=== PATIENT | female | born 1960 ===

== ENCOUNTER 2017-07-12 13:06 | Emergency (ER) | payer MEDICAID, OTHER ==
[2017-07-12 13:06] VITALS: BMI 34.7
[2017-07-12 13:17] VITALS: RESP 18; TEMP 98
--- NOTE | 2017-07-12 13:21 | ED PDOC ---
HPI: General Adult Time Seen by Provider: 07/12/17 13:18 Chief Complaint (Nursing): Cough, Cold, Congestion Chief Complaint (Provider): asthma History Per: Patient Additional Complaint(s): 56-year-old female with history of asthma presents with wheezing and congestion for 3 days. Patient ran out of her albuterol pump. Her primary doctors in [place] and she is here visiting family. Patient denies any chest pain or dyspnea on exertion but does have mild shortness of breath. PMD: in [place] Past Medical History Reviewed: Historical Data, Nursing Documentation, Vital Signs Vital Signs: Last Vital Signs Temp 98.0 F 07/12/17 13:16 Pulse 83 07/12/17 13:16 Resp 18 07/12/17 13:16 BP 129/83 07/12/17 13:16 Pulse Ox 99 07/12/17 14:27 - Medical History PMH: Asthma, HTN - Surgical History Other surgeries: left hand surgery - Family History Family History: States: No Known Family Hx - Living Arrangements Living Arrangements: With Family - Social History Current smoker - smoking cessation education provided: No Alcohol: None Drugs: Denies - Home Medications Home Medications: Ambulatory Orders Medication Instructions Recorded Albuterol HFA [Ventolin HFA 90 2 puff IH Q4 PRN #1 unit 06/11/17 mcg/actuation (8 g)] Albuterol/Ipratropium [Duoneb 3 3 ml IH Q4 PRN #30 neb 06/11/17 MG/3 Ml-0.5 MG/3 Ml 3 Ml] Azithromycin [Zithromax] 1 dose PO DAILY #1 pkt 06/11/17 Fluticasone/Salmeterol 250/50 1 puff IH DAILY 06/11/17 [Advair Diskus] Montelukast [Singulair] 10 mg PO 06/11/17 predniSONE [predniSONE Tab] 2 tab PO DAILY #10 tab 06/11/17 Albuterol HFA [Ventolin HFA 90 1 puff IH ASDIR #1 unit 07/12/17 mcg/actuation (8 g)] Prednisone 50 mg PO DAILY #5 tablet 07/12/17 - Allergies Allergies/Adverse Reactions: Allergies Allergy/AdvReac Type Severity Reaction Status Date / Time Penicillins AdvReac RASH Verified 06/11/17 12:57 Review of Systems ROS Statement: Except As Marked, All Systems Reviewed And Found Negative Constitutional: Negative for: Fever Cardiovascular: Negative for: Chest Pain Respiratory: Positive for: Cough, Shortness of Breath, Wheezing. Negative for: Hemoptysis, SOB with Exertion, Sputum Gastrointestinal: Negative for: Nausea, Vomiting Physical Exam - Reviewed Nursing Documentation Reviewed: Yes Vital Signs Reviewed: Yes - Physical Exam Appears: Positive for: Well, Non-toxic, No Acute Distress Skin: Negative for: Rash Eye Exam: Positive for: Normal appearance, EOMI, PERRL Neck: Positive for: Normal Cardiovascular/Chest: Positive for: Regular Rate, Rhythm Respiratory: Positive for: Wheezing. Negative for: Rhonchi, Respiratory Distress Gastrointestinal/Abdominal: Positive for: Soft. Negative for: Tenderness Extremity: Positive for: Normal ROM Neurologic/Psych: Positive for: Alert, Oriented - ECG O2 Sat by Pulse Oximetry: 99 Pulse Ox Interpretation: Normal - Other Rad CXR X-Ray: Interpreted by Me, Viewed By Me X-Ray Interpretation: no acute infiltrate Nebulizer Treatments/Peak Flow - Duonebs Number of Bronchodilator Doses given?: 3 (duoneb) - Pre/Post Peak Flow Pre Treatment Peak Flow: 250 Post treatment Peak Flow: 300 - Steroid Treatment Steroid: IV (IM solumedrol 125) - Clinical Response Clinical Response: Improved Medical Decision Making Medical Decision Making: Impression: Asthma exacerbation Plan: CXR Duoneb x 3 IM solumedrol 125 mg Patient feels better after meds were given. Rx ventolin inhaler and prednisone. Advised PMD follow up in 2-3 days. Disposition - Clinical Impression Clinical Impression: Asthma exacerbation - Patient ED Disposition Is Patient to be Admitted: No Counseled Patient/Family Regarding: Studies Performed, Diagnosis, Need For Followup, Rx Given - Disposition Referrals: [facility] [Outside] Disposition: Routine/Home Disposition Time: 14:37 Condition: STABLE Additional Instructions: Take rx meds as directed. Follow up with primary care doctor. Prescriptions: Albuterol HFA [Ventolin HFA 90 mcg/actuation (8 g)] 1 puff IH ASDIR #1 unit Prednisone 50 mg PO DAILY #5 tablet Instructions: Asthma, Adult (DC) Forms: [employer] (Indian)
[2017-07-12] MEDS ORDERED: Albuterol-Ipratrop 3 mg / 0.5 (3 ml) UD INH STA (13:33)
[2017-07-12] MEDS ORDERED: Albuterol-Ipratrop 3 mg / 0.5 (3 ml) UD ONE ×2 (13:37→13:42)
--- NOTE | 2017-07-12 14:28 | RAD ---
HISTORY: Cough COMPARISON: Comparison chest 01/12/2016 TECHNIQUE: Chest PA and lateral FINDINGS: LUNGS: Suspect minor left basilar atelectasis. Left. Scalloping both hemidiaphragms again noted. PLEURA: No significant pleural effusion identified. No pneumothorax apparent. CARDIOVASCULAR: Heart size is upper limits of normal/ borderline enlarged. Aorta appears ectatic and uncoiled. OSSEOUS STRUCTURES: Pectus carinatum again noted. Minor chronic anterior stature loss of 2 with 3 lower thoracic/upper lumbar segments with increase kyphosis. VISUALIZED UPPER ABDOMEN: Normal. OTHER FINDINGS: None. IMPRESSION: Suspect mild left basilar atelectasis. Scalloping both hemidiaphragms. No change pectus carinatum. Heart size upper limits of normal/borderline enlarged.
[2017-07-12 17:05] VITALS: BP 132/80; PULSE 88; O2SAT 98
== END 2017-07-12 15:40 | disposition home or self-care (01) ==
LOC: H.ER 13:06
DX: J45.901 Unspecified asthma with (acute) exacerbation (principal); I10 Essential (primary) hypertension; Z88.0 Allergy status to penicillin
CPT/HCPCS: 71046; 94640; 96372; 99282; J2930

== ENCOUNTER 2017-07-27 14:32 | Inpatient (IN) | payer MEDICAID ==
[2017-07-27 14:32] VITALS: BMI 34.7
[2017-07-27] MEDS ORDERED: Albuterol-Ipratrop 3 mg / 0.5 (3 ml) UD IH STA ×3 (15:09→17:02)
--- NOTE | 2017-07-27 15:12 | ED PDOC ---
HPI: SOB/CHF/COPD Time Seen by Provider: 07/27/17 15:00 Chief Complaint (Nursing): Shortness Of Breath History Per: Patient Onset/Duration Of Symptoms: Days (3) Current Symptoms Are (Timing): Still Present Current Respiratory Medications: See Home Med List Severity: Mild Associated Symptoms: denies: Fever Recently: Seen In ED Additional Complaint(s): SOB wheezing and cough productive white sputum Denies fever. Seen in ED 2 weeks ago for same. Also c/o sore throat. Past Medical History Vital Signs: Last Vital Signs Temp 98.3 F 07/27/17 14:56 Pulse 113 H 07/27/17 14:56 Resp 22 07/27/17 14:56 BP 155/83 H 07/27/17 14:56 Pulse Ox 98 07/27/17 18:09 - Medical History PMH: Asthma, HTN Denies: Chronic Kidney Disease - Family History Family History: States: Unknown Family Hx - Home Medications Home Medications: Ambulatory Orders Medication Instructions Recorded Albuterol HFA [Ventolin HFA 90 2 puff IH Q4 PRN #1 unit 06/11/17 mcg/actuation (8 g)] Albuterol/Ipratropium [Duoneb 3 3 ml IH Q4 PRN #30 neb 06/11/17 MG/3 Ml-0.5 MG/3 Ml 3 Ml] Azithromycin [Zithromax] 1 dose PO DAILY #1 pkt 06/11/17 Fluticasone/Salmeterol 250/50 1 puff IH DAILY 06/11/17 [Advair Diskus] Montelukast [Singulair] 10 mg PO 06/11/17 predniSONE [predniSONE Tab] 2 tab PO DAILY #10 tab 06/11/17 Albuterol HFA [Ventolin HFA 90 1 puff IH ASDIR #1 unit 07/12/17 mcg/actuation (8 g)] Prednisone 50 mg PO DAILY #5 tablet 07/12/17 - Allergies Allergies/Adverse Reactions: Allergies Allergy/AdvReac Type Severity Reaction Status Date / Time Penicillins AdvReac RASH Verified 07/27/17 14:55 Review of Systems ROS Statement: Except As Marked, All Systems Reviewed And Found Negative Respiratory: Positive for: Cough, Shortness of Breath, Wheezing Physical Exam - Reviewed Nursing Documentation Reviewed: Yes Vital Signs Reviewed: Yes - Physical Exam Appears: Positive for: Non-toxic, No Acute Distress Head Exam: Positive for: ATRAUMATIC, NORMAL INSPECTION, NORMOCEPHALIC Skin: Positive for: Normal Color, Warm, DRY Eye Exam: Positive for: EOMI, Normal appearance, PERRL ENT: Positive for: Normal ENT Inspection Neck: Positive for: Normal, Painless ROM Cardiovascular/Chest: Positive for: Regular Rate, Rhythm Respiratory: Positive for: Wheezing. Negative for: Accessory Muscle Use, Respiratory Distress Gastrointestinal/Abdominal: Positive for: Normal Exam, Soft Back: Positive for: Normal Inspection Extremity: Positive for: Normal ROM Neurologic/Psych: Positive for: Alert, Oriented - Laboratory Results Result Diagrams: 07/27/17 15:20 07/27/17 15:20 - ECG O2 Sat by Pulse Oximetry: 98 Disposition - Clinical Impression Clinical Impression: Asthma exacerbation, Bronchitis - Patient ED Disposition Is Patient to be Admitted: Yes - Disposition Disposition Time: 18:19 Condition: FAIR Forms: [facility] (Colombian) - Pt Status Changed To: Hospital Disposition Of: Observation - POA Present On Arrival: None
[2017-07-27] MEDS ORDERED: Albuterol-Ipratrop 3 mg / 0.5 (3 ml) UD ONE ×3 (15:14→17:41)
[2017-07-27 15:31] LABS: BASO # 0.1 K/uL (0.0-0.2); BASO % 1.3 % (0.0-2.0); EOS # 0.3 K/uL (0.0-0.7); LYMPH # 2.1 K/uL (1.0-4.3); LYMPH % 23.5 % (20.0-40.0); MEAN CELL VOLUME 93.2 fl (81.0-99.0); MEAN CORPUSCULAR HEMOGLOBIN 30.5 pg (27.0-31.0); MEAN CORPUSCULAR HGB CONC 32.7 g/dL (33.0-37.0); MEAN PLATELET VOLUME 9.7 fl (7.2-11.7); MONO # 0.6 K/uL (0.0-0.8); MONO % 6.3 % (0.0-10.0); NEUT % 65.9 % (50.0-75.0); RBC 3.95 Mil/uL (3.80-5.20)
[2017-07-27 15:41] LABS: ALB/GLOB RATIO 1.2 (1.0-2.1); ALT/SGPT 36 U/L (9-52); AST/SGOT 25 U/L (14-36); BLOOD UREA NITROGEN 9 mg/dl (7-17); CALCIUM 9.3 mg/dL (8.4-10.2); GFR AFRICAN-AMERICAN > 60; GFR NON-AFRICAN AMERICAN > 60
[2017-07-27] MEDS ORDERED: Azithromycin 500 MG in Sodium Chloride 0.9% 250 ML IVPB STA (18:18)
[2017-07-28 06:05] LABS: BASO # 0.1 K/uL (0.0-0.2); BASO % 0.5 % (0.0-2.0); HEMOGLOBIN 12.1 g/dL (12.0-16.0); LYMPH # 1.1 K/uL (1.0-4.3); MEAN CELL VOLUME 93.5 fl (81.0-99.0); MEAN CORPUSCULAR HEMOGLOBIN 30.1 pg (27.0-31.0); MEAN CORPUSCULAR HGB CONC 32.2 g/dL (33.0-37.0); MEAN PLATELET VOLUME 10.1 fl (7.2-11.7); MONO # 0.1 K/uL (0.0-0.8); MONO % 0.9 % (0.0-10.0); NEUT # 11.3 K/uL (1.8-7.0); NEUT % 89.6 % (50.0-75.0); PLATELET COUNT 250 K/uL (130-400); RBC 4.01 Mil/uL (3.80-5.20); RED CELL DISTRIBUTION WIDTH 14.3 % (11.5-14.5); WHITE BLOOD COUNT 12.6 K/uL (4.8-10.8)
[2017-07-28 07:02] LABS: ALB/GLOB RATIO 1.3 (1.0-2.1); ALBUMIN 4.2 g/dL (3.5-5.0); ALT/SGPT 34 U/L (9-52); AST/SGOT 39 U/L (14-36); BLOOD UREA NITROGEN 10 mg/dl (7-17); CALCIUM 9.7 mg/dL (8.4-10.2); GFR AFRICAN-AMERICAN > 60; GFR NON-AFRICAN AMERICAN > 60
[2017-07-28] MEDS: Albuterol-Ipratrop 3 mg / 0.5 (3 ml) UD INH SCH ×3 (08:45→19:43)
[2017-07-28] MEDS ORDERED: Azithromycin 500 MG in Sodium Chloride 0.9% 250 ML IVPB SCH (09:00)
--- NOTE | 2017-07-28 09:03 | RAD ---
HISTORY: sob COMPARISON: Chest radiograph dated 07/12/2017. TECHNIQUE: Chest PA and lateral FINDINGS: LUNGS: No active pulmonary disease. PLEURA: Stable eventration of the left hemidiaphragm. No significant pleural effusion identified. No pneumothorax apparent. CARDIOVASCULAR: Normal. OSSEOUS STRUCTURES: Unchanged. VISUALIZED UPPER ABDOMEN: Normal. OTHER FINDINGS: None. IMPRESSION: No active disease.
[2017-07-28 09:21] LABS: BANDS 2 % (0-2); LYMPHOCYTE 10 % (20-50); MONOCYTE 2 % (0-10); NEUTROPHIL 86 % (42-75); PLATELET ESTIMATE NORMAL (NORMAL); TOTAL CELLS COUNTED 100
[2017-07-28 09:22] LABS: ANISOCYTOSIS SLIGHT; LARGE PLATELETS PRESENT
[2017-07-28] MEDS ORDERED: Albuterol-Ipratrop 3 mg / 0.5 (3 ml) UD ONE (09:26)
[2017-07-28] MEDS ORDERED: methylPREDNISolone 60 MG in Sodium Chloride 0.9% 50 ML IVPB SCH (09:30)
[2017-07-28] MEDS: Azithromycin 500 MG in Sodium Chloride 0.9% 250 ML IVPB SCH (18:21)
[2017-07-29] MEDS: Albuterol-Ipratrop 3 mg / 0.5 (3 ml) UD INH SCH ×4 (07:50→19:40)
--- NOTE | 2017-07-29 09:33 | CP.PCM.CON ---
History of Present Illness - History of Present Illness History of Present Illness: COUGH WITH SOB AND EXERCISE INTOLERANCE X SEVERAL WEEKS--WORSE RECENTLY HX OF CHRONIC PERSISTENT ASTHMA WITH MINIMAL RESPONSE TO CONVENTIONAL MEDS C/O CHEST TIGHTNESS AND INABILITY TO EXPECTORATE SPUTUM Past Patient History - Past Medical History & Family History Past Medical History?: Yes - Past Social History Smoking Status: Never Smoked - CARDIAC Hx Hypertension: Yes - PULMONARY Hx Respiratory Disorders: Yes - NEUROLOGICAL Hx Neurological Disorder: No - HEENT Hx HEENT Problems: No - RENAL Hx Chronic Kidney Disease: No - ENDOCRINE/METABOLIC Hx Endocrine Disorders: No - HEMATOLOGICAL/ONCOLOGICAL Hx Blood Disorders: No - INTEGUMENTARY Hx Dermatological Problems: No - MUSCULOSKELETAL/RHEUMATOLOGICAL Hx Musculoskeletal Disorders: No Hx Falls: No - GASTROINTESTINAL Hx Gastrointestinal Disorders: No - GENITOURINARY/GYNECOLOGICAL Hx Genitourinary Disorders: No - PSYCHIATRIC Hx Psychophysiologic Disorder: No Hx Substance Use: No - SURGICAL HISTORY Hx Surgeries: Yes Hx Orthopedic Surgery: Yes Other/Comment: left finger surgery - ANESTHESIA Hx Anesthesia: Yes Hx Anesthesia Reactions: No Hx Malignant Hyperthermia: No Meds Allergies/Adverse Reactions: Allergies Allergy/AdvReac Type Severity Reaction Status Date / Time Penicillins AdvReac RASH Verified 07/27/17 14:55 - Medications Medications: Current Medications Albuterol/Ipratropium (Duoneb 3 Mg/0.5 Mg (3 Ml) Ud) 3 ml INH RQID [facility] Last Admin: 07/29/17 07:50 Dose: 3 ml Azithromycin 500 mg/ Sodium (Chloride) 250 mls @ 250 mls/hr IVPB DAILY@1900 [facility] PRN Reason: Protocol Last Admin: 07/28/17 18:21 Dose: 250 mls/hr Methylprednisolone (Solu-Medrol) 60 mg IV Q12 [facility] Last Admin: 07/29/17 09:01 Dose: 60 mg Physical Exam - Constitutional Appears: In Acute Distress - Head Exam Head Exam: ATRAUMATIC, NORMAL INSPECTION, NORMOCEPHALIC - Eye Exam Eye Exam: EOMI, Normal appearance, PERRL Pupil Exam: NORMAL ACCOMODATION, PERRL - ENT Exam ENT Exam: Mucous Membranes Moist, Normal Exam - Neck Exam Neck exam: Positive for: Normal Inspection - Respiratory Exam Respiratory Exam: Decreased Breath Sounds, Prolonged Expiratory Phase, Rales, Wheezes, Respiratory Distress, NORMAL BREATHING PATTERN - Cardiovascular Exam Cardiovascular Exam: REGULAR RHYTHM - GI/Abdominal Exam GI & Abdominal Exam: Normal Bowel Sounds, Soft. absent: Tenderness - Rectal Exam Rectal Exam: NORMAL INSPECTION - Extremities Exam Extremities exam: Positive for: normal inspection - Back Exam Back exam: NORMAL INSPECTION - Neurological Exam Neurological exam: Alert, CN II-XII Intact, Normal Gait, Oriented x3, Reflexes Normal - Psychiatric Exam Psychiatric exam: Normal Affect, Normal Mood - Skin Skin Exam: Dry, Intact, Normal Color, Warm Results - Vital Signs Recent Vital Signs: Last Vital Signs Temp 97.6 F 07/29/17 08:02 Pulse 78 07/29/17 08:02 Resp 19 07/29/17 08:02 BP 117/78 07/29/17 08:02 Pulse Ox 96 07/29/17 08:02 - Labs Result Diagrams: 07/28/17 05:45 07/28/17 05:45 Assessment & Plan - Assessment and Plan (Free Text) Assessment: ACUTE EXACERBATION OF CHRONIC PERSISTENT ASTHMA URI ANXIETY Plan: SEE ORDERS - Date & Time Date: 07/29/17 Time: 09:34
[2017-07-29] MEDS ORDERED: Sodium Chloride 3% for Inhalation 4 ML VIAL.NEB IH PRN (09:38)
[2017-07-29] MEDS: Fluticasone-Salmeterol 250-50mcg Diskus IH SCH ×2 (10:29→21:35)
[2017-07-29] MEDS: THEOPHYLLINE 400 MG T24(UNIPHYL) PO SCH (10:29)
--- NOTE | 2017-07-29 11:52 | CP.PCM.HP ---
<Trent Hernández - Last Filed: 07/29/17 11:38> History of Present Illness - History of Present Illness History of Present Illness: CC: SOB HPI: 56 y/o woman w/ pmh of HTN and mild persistent asthma presented to ED w/ acute asthma exacerbation. Patient reports being seen in ED 2 weeks ago for similar complaint. Patient was discharged w/ PO prednisone 50 mg for 5 days. Patient had return of SOB 2-3 days ago. Patient adherent to prescribed medication. Patient also reports non-productive cough and sore throat. Patient denies headaches, chest pain, dizziness, abdominal pain, nausea, vomiting, diarrhea, dysuria, or fever. PMD: in [place] PMH: HTN, mild-moderate persistent asthma meds: see med list PSH: left hand surgery Fam: denies SOC: denies smoking, alcohol, and drugs ROS: 12 points assessed and negative unless otherwise reported in HPI Present on Admission - Present on Admission Any Indicators Present on Admission: No History of DVT/PE: No History of Uncontrolled Diabetes: No Urinary Catheter: No Decubitus Ulcer Present: No Review of Systems - Review of Systems All systems: reviewed and no additional remarkable complaints except - Constitutional Constitutional: absent: Fever, Headache - EENT Eyes: absent: Change in Vision - Cardiovascular Cardiovascular: As Per HPI. absent: Chest Pain - Respiratory Respiratory: Cough, Dyspnea, Wheezing. absent: Hemoptysis - Gastrointestinal Gastrointestinal: absent: Abdominal Pain, Diarrhea, Nausea, Vomiting - Genitourinary Genitourinary: absent: Dysuria - Integumentary Integumentary: absent: Rash Past Patient History - Past Medical History & Family History Past Medical History?: Yes - Past Social History Smoking Status: Never Smoked - CARDIAC Hx Hypertension: Yes - PULMONARY Hx Respiratory Disorders: Yes - NEUROLOGICAL Hx Neurological Disorder: No - HEENT Hx HEENT Problems: No - RENAL Hx Chronic Kidney Disease: No - ENDOCRINE/METABOLIC Hx Endocrine Disorders: No - HEMATOLOGICAL/ONCOLOGICAL Hx Blood Disorders: No - INTEGUMENTARY Hx Dermatological Problems: No - MUSCULOSKELETAL/RHEUMATOLOGICAL Hx Musculoskeletal Disorders: No Hx Falls: No - GASTROINTESTINAL Hx Gastrointestinal Disorders: No - GENITOURINARY/GYNECOLOGICAL Hx Genitourinary Disorders: No - PSYCHIATRIC Hx Psychophysiologic Disorder: No Hx Substance Use: No - SURGICAL HISTORY Hx Surgeries: Yes Hx Orthopedic Surgery: Yes Other/Comment: left finger surgery - ANESTHESIA Hx Anesthesia: Yes Hx Anesthesia Reactions: No Hx Malignant Hyperthermia: No Meds Allergies/Adverse Reactions: Allergies Allergy/AdvReac Type Severity Reaction Status Date / Time Penicillins AdvReac RASH Verified 07/27/17 14:55 Physical Exam - Constitutional Appears: Non-toxic, No Acute Distress - Head Exam Head Exam: ATRAUMATIC, NORMAL INSPECTION, NORMOCEPHALIC - Eye Exam Eye Exam: Normal appearance - ENT Exam ENT Exam: Mucous Membranes Moist - Neck Exam Neck exam: Positive for: Full Rom. Negative for: Tenderness - Respiratory Exam Respiratory Exam: Decreased Breath Sounds, Prolonged Expiratory Phase, Wheezes ( diffuse wheeze), Respiratory Distress (mild but able to speak in full sentences uninterrupted). absent: Accessory Muscle Use, Chest Wall Tenderness, Rales, Rhonchi - Cardiovascular Exam Cardiovascular Exam: REGULAR RHYTHM. absent: Tachycardia - GI/Abdominal Exam GI & Abdominal Exam: Normal Bowel Sounds, Soft. absent: Distended, Tenderness - Extremities Exam Extremities exam: Negative for: calf tenderness, pedal edema, tenderness - Neurological Exam Neurological exam: Alert, Oriented x3 - Skin Skin Exam: Dry, Intact, Normal Color, Warm Results - Vital Signs Recent Vital Signs: Last Vital Signs Temp 97.6 F 07/29/17 08:02 Pulse 78 07/29/17 08:02 Resp 19 07/29/17 08:02 BP 117/78 07/29/17 08:02 Pulse Ox 96 07/29/17 08:02 - Labs Result Diagrams: 07/28/17 05:45 07/28/17 05:45 Assessment & Plan (1) Asthma exacerbation Status: Acute (2) HTN (hypertension) Status: Chronic Comment: controlled w/o medication - Assessment and Plan (Free Text) Plan: c/w present management pulmonology recommendations appreciated CXR: no active pulmonary disease process azithromycin 500 mg IV daily day 2 duonebs Q6h scheduled advair 1 puff INH Q12h solumedrol 60 mg IV Q8h singulair 10 mg PO daily theophylline 400 mg PO daily monitor for acute changes - Date & Time Date: 07/28/17 Time: 22:00 <Hansel Rosales - Last Filed: 07/30/17 23:12> Results - Vital Signs Recent Vital Signs: Last Vital Signs Temp 98.1 F 07/30/17 16:27 Pulse 90 07/30/17 16:27 Resp 18 07/30/17 16:27 BP 117/72 07/30/17 16:27 Pulse Ox 97 07/30/17 16:27 - Labs Result Diagrams: 07/28/17 05:45 07/28/17 05:45 Assessment & Plan - Assessment and Plan (Free Text) Plan: I was present during evaluation and discussed with Dr Hernández re plans of care and mgt. Hansel Rosales M.D.
[2017-07-29] MEDS: Azithromycin 500 MG in Sodium Chloride 0.9% 250 ML IVPB SCH (18:39)
[2017-07-30] MEDS: Albuterol-Ipratrop 3 mg / 0.5 (3 ml) UD INH SCH ×4 (01:04→19:45)
[2017-07-30] MEDS: Fluticasone-Salmeterol 250-50mcg Diskus IH SCH ×2 (09:05→21:48)
[2017-07-30] MEDS: THEOPHYLLINE 400 MG T24(UNIPHYL) PO SCH (09:05)
--- NOTE | 2017-07-30 10:30 | CP.PCM.PN ---
Subjective - Date & Time of Evaluation Date of Evaluation: 07/30/17 Time of Evaluation: 10:30 - Subjective Subjective: FEELS BETTER SOB LESS Objective - Vital Signs/Intake and Output Vital Signs (last 24 hours): Temp Pulse Resp BP Pulse Ox 97.9 F 74 18 134/89 98 07/30/17 07:54 07/30/17 07:54 07/30/17 07:54 07/30/17 07:54 07/30/17 07:54 - Medications Medications: Current Medications Albuterol/Ipratropium (Duoneb 3 Mg/0.5 Mg (3 Ml) Ud) 3 ml INH RQ6 [facility] Last Admin: 07/30/17 07:51 Dose: 3 ml Azithromycin 500 mg/ Sodium (Chloride) 250 mls @ 250 mls/hr IVPB DAILY@1900 [facility] PRN Reason: Protocol Last Admin: 07/29/17 18:39 Dose: 250 mls/hr Methylprednisolone (Solu-Medrol) 60 mg IV Q8 [facility] Last Admin: 07/30/17 09:06 Dose: 60 mg Montelukast Sodium (Singulair) 10 mg PO DAILY [facility] Last Admin: 07/30/17 09:05 Dose: 10 mg Fluticasone/Salmeterol (Advair Diskus 250/50) 1 puff IH Q12 [facility] Last Admin: 07/30/17 09:05 Dose: 1 puff Theophylline (Uniphyl) 400 mg PO DAILY [facility] Last Admin: 07/30/17 09:05 Dose: 400 mg - Labs Labs: 07/28/17 05:45 07/28/17 05:45 - Constitutional Appears: No Acute Distress - Head Exam Head Exam: ATRAUMATIC, NORMAL INSPECTION, NORMOCEPHALIC - Eye Exam Eye Exam: EOMI, Normal appearance, PERRL Pupil Exam: NORMAL ACCOMODATION, PERRL - ENT Exam ENT Exam: Mucous Membranes Moist, Normal Exam - Neck Exam Neck Exam: Full ROM, Normal Inspection. absent: Lymphadenopathy - Respiratory Exam Respiratory Exam: Decreased Breath Sounds, Prolonged Expiratory Phase, Wheezes, NORMAL BREATHING PATTERN - Cardiovascular Exam Cardiovascular Exam: REGULAR RHYTHM, +S1, +S2. absent: Murmur - GI/Abdominal Exam GI & Abdominal Exam: Soft, Normal Bowel Sounds. absent: Tenderness - Rectal Exam Rectal Exam: NORMAL INSPECTION - Extremities Exam Extremities Exam: Full ROM, Normal Capillary Refill, Normal Inspection. absent : Joint Swelling, Pedal Edema - Back Exam Back Exam: NORMAL INSPECTION - Neurological Exam Neurological Exam: Alert, Awake, CN II-XII Intact, Normal Gait, Oriented x3 - Psychiatric Exam Psychiatric exam: Normal Affect, Normal Mood - Skin Skin Exam: Dry, Intact, Normal Color, Warm Assessment and Plan - Assessment and Plan (Free Text) Assessment: ACUTE ASTHMA--IMPROVING Plan: TAPER STEROIDS OK TO D/C IN AM IF STABLE
[2017-07-30] MEDS ORDERED: MethylPREDNISolone 40 mg Vial IV SCH (12:00)
--- NOTE | 2017-07-30 15:40 | CP.PCM.PN ---
<Trent Hernández - Last Filed: 07/30/17 15:38> Subjective - Date & Time of Evaluation Date of Evaluation: 07/30/17 Time of Evaluation: 08:40 - Subjective Subjective: Patient seen and examined this morning at bedside. There are no acute events overnight, NAD. The patient reports breathing improved w/ increased steroid and added medications by director of reimbursement. Patient denies headaches, chest pain, abdominal pain, nausea, vomiting, diarrhea, dysuria, or fever. Objective - Vital Signs/Intake and Output Vital Signs (last 24 hours): Temp Pulse Resp BP Pulse Ox 97.9 F 74 18 134/89 98 07/30/17 07:54 07/30/17 07:54 07/30/17 07:54 07/30/17 07:54 07/30/17 07:54 - Medications Medications: Current Medications Albuterol/Ipratropium (Duoneb 3 Mg/0.5 Mg (3 Ml) Ud) 3 ml INH RQ6 [facility] Last Admin: 07/30/17 13:21 Dose: 3 ml Azithromycin 500 mg/ Sodium (Chloride) 250 mls @ 250 mls/hr IVPB DAILY@1900 [facility] PRN Reason: Protocol Last Admin: 07/29/17 18:39 Dose: 250 mls/hr Methylprednisolone (Solu-Medrol) 40 mg IV 12 [facility] Last Admin: 07/30/17 12:00 Dose: Not Given Montelukast Sodium (Singulair) 10 mg PO DAILY [facility] Last Admin: 07/30/17 09:05 Dose: 10 mg Fluticasone/Salmeterol (Advair Diskus 250/50) 1 puff IH Q12 [facility] Last Admin: 07/30/17 09:05 Dose: 1 puff Theophylline (Uniphyl) 400 mg PO DAILY [facility] Last Admin: 07/30/17 09:05 Dose: 400 mg - Labs Labs: 07/28/17 05:45 07/28/17 05:45 - Constitutional Appears: Non-toxic, No Acute Distress - Head Exam Head Exam: ATRAUMATIC, NORMAL INSPECTION, NORMOCEPHALIC - Eye Exam Eye Exam: Normal appearance - ENT Exam ENT Exam: Mucous Membranes Moist - Neck Exam Neck Exam: Full ROM. absent: Tenderness - Respiratory Exam Respiratory Exam: Wheezes. absent: Accessory Muscle Use, Decreased Breath Sounds, Clear to Ausculation Bilateral, Rales, Rhonchi, Respiratory Distress - Cardiovascular Exam Cardiovascular Exam: REGULAR RHYTHM. absent: Tachycardia - GI/Abdominal Exam GI & Abdominal Exam: Soft, Normal Bowel Sounds. absent: Distended, Tenderness - Extremities Exam Extremities Exam: absent: Calf Tenderness, Pedal Edema, Tenderness - Neurological Exam Neurological Exam: Alert, Awake, Oriented x3 - Skin Skin Exam: Dry, Intact, Normal Color, Warm Assessment and Plan (1) Asthma exacerbation Status: Acute (2) HTN (hypertension) Status: Chronic - Assessment and Plan (Free Text) Plan: c/w present management pulmonology recommendations appreciated CXR: no active pulmonary disease process azithromycin 500 mg IV daily day 3 duonebs Q6h scheduled advair 1 puff INH Q12h solumedrol 40 mg IV Q12h singulair 10 mg PO daily theophylline 400 mg PO daily monitor for acute changes <Hansel Rosales - Last Filed: 07/30/17 23:13> Objective - Vital Signs/Intake and Output Vital Signs (last 24 hours): Temp Pulse Resp BP Pulse Ox 98.1 F 90 18 117/72 97 07/30/17 16:27 07/30/17 16:27 07/30/17 16:27 07/30/17 16:27 07/30/17 16:27 - Medications Medications: Current Medications Albuterol/Ipratropium (Duoneb 3 Mg/0.5 Mg (3 Ml) Ud) 3 ml INH RQ6 [facility] Last Admin: 07/30/17 19:45 Dose: 3 ml Azithromycin 500 mg/ Sodium (Chloride) 250 mls @ 250 mls/hr IVPB DAILY@1900 [facility] PRN Reason: Protocol Last Admin: 07/30/17 18:07 Dose: 250 mls/hr Methylprednisolone (Solu-Medrol) 40 mg IV Q12 [facility] Montelukast Sodium (Singulair) 10 mg PO DAILY [facility] Last Admin: 07/30/17 09:05 Dose: 10 mg Fluticasone/Salmeterol (Advair Diskus 250/50) 1 puff IH Q12 [facility] Last Admin: 07/30/17 21:48 Dose: 1 puff Theophylline (Uniphyl) 400 mg PO DAILY [facility] Last Admin: 07/30/17 09:05 Dose: 400 mg - Labs Labs: 07/28/17 05:45 07/28/17 05:45 Assessment and Plan - Assessment and Plan (Free Text) Plan: I was present during evaluation and discussed with Dr Hernández re plans of care and mgt Hansel Rosales M.D.
[2017-07-30 16:29] VITALS: O2SAT 97
[2017-07-30] MEDS: Azithromycin 500 MG in Sodium Chloride 0.9% 250 ML IVPB SCH (18:07)
[2017-07-31 00:51] VITALS: RESP 20
[2017-07-31] MEDS: Albuterol-Ipratrop 3 mg / 0.5 (3 ml) UD INH SCH ×2 (01:12→08:45)
[2017-07-31 08:14] VITALS: BP 153/90; PULSE 74; TEMP 97.7
--- NOTE | 2017-07-31 08:39 | CP.PCM.PN ---
Subjective - Date & Time of Evaluation Date of Evaluation: 07/31/17 Time of Evaluation: 08:39 - Subjective Subjective: FEELS BETTER SOB IMPROVED Objective - Vital Signs/Intake and Output Vital Signs (last 24 hours): Temp Pulse Resp BP Pulse Ox 97.7 F 74 20 153/90 H 97 07/31/17 08:13 07/31/17 08:13 07/31/17 08:13 07/31/17 08:13 07/31/17 08:13 - Medications Medications: Current Medications Albuterol/Ipratropium (Duoneb 3 Mg/0.5 Mg (3 Ml) Ud) 3 ml INH RQ6 [facility] Last Admin: 07/31/17 01:12 Dose: 3 ml Azithromycin 500 mg/ Sodium (Chloride) 250 mls @ 250 mls/hr IVPB DAILY@1900 [facility] PRN Reason: Protocol Last Admin: 07/30/17 18:07 Dose: 250 mls/hr Methylprednisolone (Solu-Medrol) 40 mg IV Q12 [facility] Montelukast Sodium (Singulair) 10 mg PO DAILY [facility] Last Admin: 07/30/17 09:05 Dose: 10 mg Fluticasone/Salmeterol (Advair Diskus 250/50) 1 puff IH Q12 [facility] Last Admin: 07/30/17 21:48 Dose: 1 puff Theophylline (Uniphyl) 400 mg PO DAILY [facility] Last Admin: 07/30/17 09:05 Dose: 400 mg - Labs Labs: 07/28/17 05:45 07/28/17 05:45 - Constitutional Appears: No Acute Distress - Head Exam Head Exam: ATRAUMATIC, NORMAL INSPECTION, NORMOCEPHALIC - Eye Exam Eye Exam: EOMI, Normal appearance, PERRL Pupil Exam: NORMAL ACCOMODATION, PERRL - ENT Exam ENT Exam: Mucous Membranes Moist, Normal Exam - Neck Exam Neck Exam: Full ROM, Normal Inspection. absent: Lymphadenopathy - Respiratory Exam Respiratory Exam: Clear to Ausculation Bilateral, NORMAL BREATHING PATTERN Additional comments: VERY MINIMAL WHEEZING - Cardiovascular Exam Cardiovascular Exam: REGULAR RHYTHM, +S1, +S2. absent: Murmur - GI/Abdominal Exam GI & Abdominal Exam: Soft, Normal Bowel Sounds. absent: Tenderness - Rectal Exam Rectal Exam: NORMAL INSPECTION - Extremities Exam Extremities Exam: Full ROM, Normal Capillary Refill, Normal Inspection. absent : Joint Swelling, Pedal Edema - Back Exam Back Exam: NORMAL INSPECTION - Neurological Exam Neurological Exam: Alert, Awake, CN II-XII Intact, Normal Gait, Oriented x3 - Psychiatric Exam Psychiatric exam: Normal Affect, Normal Mood - Skin Skin Exam: Dry, Intact, Normal Color, Warm Assessment and Plan - Assessment and Plan (Free Text) Assessment: ASTHMA IMPROVED Plan: NO FURTHER PULMONARY INTERVENTION FOR NOW WILL SIGN OFF CASE AND SEE AGAIN AT YOUR REQUEST
[2017-07-31] MEDS: THEOPHYLLINE 400 MG T24(UNIPHYL) PO SCH (08:44)
[2017-07-31] MEDS: Fluticasone-Salmeterol 250-50mcg Diskus IH SCH (08:44)
[2017-07-31] MEDS ORDERED: MethylPREDNISolone 40 mg Vial IV SCH (09:00)
[2017-07-31] MEDS ORDERED: Albuterol HFA 90 mcg/actuation (8 g) INH PRN (09:41)
--- NOTE | 2017-07-31 13:39 | CP.PCM.DIS ---
Provider - Provider Date of Admission: 07/29/17 09:23 Attending physician: Hansel Rosales MD Time Spent in preparation of Discharge (in minutes): 15 Diagnosis - Discharge Diagnosis (1) Asthma exacerbation Status: Acute (2) HTN (hypertension) Status: Chronic Hospital Course - Lab Results Lab Results: Most Recent Lab Values WBC 12.6 K/uL (4.8-10.8) H 07/28/17 05:45 RBC 4.01 Mil/uL (3.80-5.20) 07/28/17 05:45 Hgb 12.1 g/dL (12.0-16.0) 07/28/17 05:45 Hct 37.5 % (34.0-47.0) 07/28/17 05:45 MCV 93.5 fl (81.0-99.0) 07/28/17 05:45 MCH 30.1 pg (27.0-31.0) 07/28/17 05:45 MCHC 32.2 g/dL (33.0-37.0) L 07/28/17 05:45 RDW 14.3 % (11.5-14.5) 07/28/17 05:45 Plt Count 250 K/uL (130-400) 07/28/17 05:45 MPV 10.1 fl (7.2-11.7) 07/28/17 05:45 Neut % (Auto) 89.6 % (50.0-75.0) H 07/28/17 05:45 Lymph % (Auto) 9.0 % (20.0-40.0) L 07/28/17 05:45 [place] % (Auto) 0.9 % (0.0-10.0) 07/28/17 05:45 Eos % (Auto) 0.0 % (0.0-4.0) 07/28/17 05:45 Baso % (Auto) 0.5 % (0.0-2.0) 07/28/17 05:45 Neut # (Auto) 11.3 K/uL (1.8-7.0) H 07/28/17 05:45 Lymph # (Auto) 1.1 K/uL (1.0-4.3) 07/28/17 05:45 [place] # (Auto) 0.1 K/uL (0.0-0.8) 07/28/17 05:45 Eos # (Auto) 0.0 K/uL (0.0-0.7) 07/28/17 05:45 Baso # (Auto) 0.1 K/uL (0.0-0.2) 07/28/17 05:45 Neutrophils % (Manual) 86 % (42-75) H 07/28/17 05:45 Band Neutrophils % 2 % (0-2) 07/28/17 05:45 Lymphocytes % (Manual) 10 % (20-50) L 07/28/17 05:45 Monocytes % (Manual) 2 % (0-10) 07/28/17 05:45 Platelet Estimate Normal (NORMAL) 07/28/17 05:45 Large Platelets Present 07/28/17 05:45 Anisocytosis (manual) Slight 07/28/17 05:45 Sodium 143 mmol/l (132-148) 07/28/17 05:45 Potassium 5.0 MMOL/L (3.6-5.0) 07/28/17 05:45 Chloride 106 mmol/L (98-107) 07/28/17 05:45 Carbon Dioxide 20 mmol/L (22-30) L 07/28/17 05:45 Anion Gap 22 (10-20) H 07/28/17 05:45 BUN 10 mg/dl (7-17) 07/28/17 05:45 Creatinine 0.6 mg/dl (0.7-1.2) L 07/28/17 05:45 Est GFR ( Amer) > 60 07/28/17 05:45 Est GFR (Non-Af Amer) > 60 07/28/17 05:45 Random Glucose 202 mg/dL (65-105) H 07/28/17 05:45 Calcium 9.7 mg/dL (8.4-10.2) 07/28/17 05:45 Total Bilirubin 0.9 mg/dl (0.2-1.3) 07/28/17 05:45 AST 39 U/L (14-36) H D 07/28/17 05:45 ALT 34 U/L (9-52) 07/28/17 05:45 Alkaline Phosphatase 73 U/L (38-126) 07/28/17 05:45 Total Protein 7.5 G/DL (6.3-8.2) 07/28/17 05:45 Albumin 4.2 g/dL (3.5-5.0) 07/28/17 05:45 Globulin 3.3 gm/dL (2.2-3.9) 07/28/17 05:45 Albumin/Globulin Ratio 1.3 (1.0-2.1) 07/28/17 05:45 - Hospital Course Hospital Course: 56 y/o woman w/ pmh of HTN and mild persistent asthma presented to ED w/ acute asthma exacerbation. Patient was seen and evaluated in the ED. Patient was tachycardic and had mildly elevated BP 155/83 mm Hg. Patient's CBC and CMP were WNL. Elevation in WBC and glucose occurred s/p prednisone administration. Patient started on round the clock duoneb treatment. Patient seen by pulmonology for mild-moderate persistent asthma. Patient reported improvement in breathing w/ medication and breathing treatments. Patient is feeling better and denies headaches, chest pain, SOB, abdominal pain, nausea, vomiting, diarrhea, dysuria, or fever. The patient has been seen, examined, and deemed medically fit for discharge home. The patient is to follow up w/ PMD in 1 week and pulmonogist in 1-2 weeks. The patient will be given updated medication list and prescriptions. Discharge Exam - Head Exam Head Exam: ATRAUMATIC, NORMAL INSPECTION, NORMOCEPHALIC - Eye Exam Eye Exam: Normal appearance - ENT Exam ENT Exam: Mucous Membranes Moist - Neck Exam Neck exam: Full Rom - Respiratory Exam Respiratory Exam: Wheezes (improved, less diffuse, expiratory, more on the bases ). absent: Accessory Muscle Use, Rales, Rhonchi, Respiratory Distress - GI/Abdominal Exam GI & Abdominal Exam: Normal Bowel Sounds, Soft. absent: Distended, Tenderness - Extremities Exam Extremities exam: normal inspection - Neurological Exam Neurological exam: Alert, Oriented x3 - Skin Skin Exam: Dry, Intact, Warm Discharge Plan - Discharge Medications Prescriptions: Albuterol HFA [Ventolin HFA 90 mcg/actuation (8 g)] 2 puff IH Q4 PRN #1 inhaler PRN Reason: Shortness Of Breath Azithromycin [Z-Jesse] 250 mg PO DAILY #6 tab Fluticasone/Salmeterol 250/50 [Advair Diskus 250/50] 1 puff IH Q12 #1 puff Methylprednisolone [Medrol Dose Pack (21 tabs)] 4 mg PO DAILY #21 mg Montelukast [Singulair] 10 mg PO DAILY #1 tab Theophylline [Uniphyl] 400 mg PO DAILY #30 t24 - Follow Up Plan Condition: FAIR Disposition: HOME/ ROUTINE Instructions: Asthma, Adult (DC) Additional Instructions: follow up with your primary MD 7-10 days Referrals: [facility] [place] [Outside] Jericho Brown MD [Staff Provider] -
== END 2017-07-31 12:17 | disposition home or self-care (01) | DRG 97 ==
LOC: H.ER 14:32 → H.ERHOLD 18:17 → H.MEDSURG1 07-28 11:02 → OBSVTOIN 07-29 09:23
PROVIDERS: ADMIT Family Medicine; ATTEND Family Medicine
PROC: 3E0F73Z Introduction of Anti-inflammatory into Respiratory Tract, Via Natural or Artificial Opening (ICD-10-PCS; principal; 2017-07-29)
DX: J45.41 Moderate persistent asthma with (acute) exacerbation (principal); J06.9 Acute upper respiratory infection, unspecified; I10 Essential (primary) hypertension; F41.9 Anxiety disorder, unspecified; Z88.0 Allergy status to penicillin

== ENCOUNTER 2017-09-15 13:16 | Emergency (ER) | payer MEDICAID ==
[2017-09-15 13:16] VITALS: BMI 34.7
[2017-09-15 13:27] VITALS: TEMP 97; O2SAT 100
[2017-09-15] MEDS ORDERED: Albuterol-Ipratrop 3 mg / 0.5 (3 ml) UD INH STA ×3 (14:04→14:05)
[2017-09-15] MEDS ORDERED: Albuterol 0.083% Inhal Sol (2.5 mg/3 mL) UD INH STA ×2 (14:04→15:18)
[2017-09-15] MEDS ORDERED: Albuterol 0.083% Inhal Sol (2.5 mg/3 mL) UD ONE ×2 (14:26→15:59)
[2017-09-15 14:39] LABS: BASO # 0.1 K/uL (0.0-0.2); BASO % 1.1 % (0.0-2.0); EOS # 0.4 K/uL (0.0-0.7); EOS % 4.1 % (0.0-4.0); LYMPH # 3.2 K/uL (1.0-4.3); LYMPH % 36.1 % (20.0-40.0); MEAN CELL VOLUME 92.4 fl (81.0-99.0); MEAN CORPUSCULAR HEMOGLOBIN 30.7 pg (27.0-31.0); MEAN CORPUSCULAR HGB CONC 33.2 g/dL (33.0-37.0); MEAN PLATELET VOLUME 9.6 fl (7.2-11.7); MONO # 0.7 K/uL (0.0-0.8); MONO % 7.4 % (0.0-10.0); NEUT # 4.5 K/uL (1.8-7.0); NEUT % 51.3 % (50.0-75.0); NRBC % 0.1 % (0.0-0.0); RBC 4.23 Mil/uL (3.80-5.20); WHITE BLOOD COUNT 8.9 K/uL (4.8-10.8)
[2017-09-15 14:43] LABS: BLOOD UREA NITROGEN 13 mg/dl (7-17); CALCIUM 9.6 mg/dL (8.4-10.2); GFR AFRICAN-AMERICAN > 60; GFR NON-AFRICAN AMERICAN > 60
[2017-09-15] MEDS ORDERED: Albuterol-Ipratrop 3 mg / 0.5 (3 ml) UD ONE ×2 (14:46→15:45)
--- NOTE | 2017-09-15 14:52 | ED PDOC ---
HPI: SOB/CHF/COPD Time Seen by Provider: 09/15/17 13:31 Chief Complaint (Nursing): Shortness Of Breath Chief Complaint (Provider): Shortness Of Breath History Per: Patient History/Exam Limitations: no limitations Onset/Duration Of Symptoms: Days (x6) Current Symptoms Are (Timing): Still Present Associated Symptoms: Productive Cough. denies: Fever, Chills, Chest Pain Additional Complaint(s): 56 year old female with a past medical history of HTN, asthma, and seasonal allergies, presents to the ED with complaints of a wet cough with white/clear phlegm associated with shortness of breath, onset 6 days ago. Secondary to cough , patient reports a sore throat, onset this morning. Patient states she used her nebulizer at 9am along with one tab of Singulair and also used her inhaler at noon with minimal relief, thus prompting today's visit. Patient has a history of being admitted due to asthma. Last admission was June of 2017. Otherwise, (-) intubations, (-) fever, (-) chills, (-) recent travel, (-) sick contacts, (-) chest pain, (-) abdominal pain (-) N/V (-) prolonged immobility (- ) leg pain/swelling. PMD: Dr. Rosales. 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 - Family History Family History: States: Unknown Family Hx - Social History Current smoker - smoking cessation education provided: No Alcohol: None Drugs: Denies - Home Medications Home Medications: Ambulatory Orders Medication Instructions Recorded Albuterol/Ipratropium [Duoneb 3 1 ea IH Q4 PRN 07/27/17 mg/0.5 mg (3 ml) UD] Albuterol HFA [Ventolin HFA 90 2 puff IH Q4 PRN #1 inhaler 07/31/17 mcg/actuation (8 g)] Azithromycin [Z-Jesse] 250 mg PO DAILY #6 tab 07/31/17 Fluticasone/Salmeterol 250/50 1 puff IH Q12 #1 puff 07/31/17 [Advair Diskus 250/50] Methylprednisolone [Medrol Dose 4 mg PO DAILY #21 mg 07/31/17 Pack (21 tabs)] Montelukast [Singulair] 10 mg PO DAILY #1 tab 07/31/17 Theophylline [Uniphyl] 400 mg PO DAILY #30 t24 07/31/17 Promethazine/Dextromethorphan 5 ml PO Q6 PRN #200 ml 09/15/17 [Promethazine-Dm Syrup] predniSONE [predniSONE Tab] 40 mg PO DAILY #10 tab 09/15/17 - Allergies Allergies/Adverse Reactions: Allergies Allergy/AdvReac Type Severity Reaction Status Date / Time Penicillins AdvReac RASH Verified 09/15/17 13:23 Review of Systems ROS Statement: Except As Marked, All Systems Reviewed And Found Negative Constitutional: Negative for: Fever, Chills ENT: Positive for: Throat Pain (sore throat ) Cardiovascular: Negative for: Chest Pain Respiratory: Positive for: Cough (wet cough with white phlegm), Shortness of Breath Gastrointestinal: Negative for: Abdominal Pain Physical Exam - Reviewed Nursing Documentation Reviewed: Yes Vital Signs Reviewed: Yes - Physical Exam Comments: GENERAL APPEARANCE: Patient is awake, alert, oriented x 3, in no acute distress , resting comfortably, speaking in full sentences. SKIN: Warm, dry; (-) cyanosis. EYES: (-) conjunctival pallor. ENMT: Mucous membranes moist. Airway patent: (-) stridor. Pharynx: (-) swelling, (-) erythema (-) exudate. NECK: Supple (-) tenderness, (-) stiffness, (-) lymphadenopathy. CHEST AND RESPIRATORY: (+) diffuse inspiratory and expiratory wheezing; (-) rales, (+) scattered rhonchi, (-) rub; breath sounds equal bilaterally, respirations non-labored. HEART AND CARDIOVASCULAR: (-) irregularity; (-) murmur, (-) gallop. ABDOMEN AND GI: Soft; (-) tenderness (-) guarding (-) distention. EXTREMITIES: (-) deformity, (-) edema. NEURO AND PSYCH: Mental status as above; (-) focal findings. Gait steady, speech clear. (-) facial asymmetry. - Laboratory Results Result Diagrams: 09/15/17 14:27 09/15/17 14:27 - ECG O2 Sat by Pulse Oximetry: 100 (RA) Pulse Ox Interpretation: Normal Medical Decision Making Medical Decision Making: Time: 1404 Impression: Asthma exacerbation, shortness of breath Plan: -- Albuterol [0.083% Inhal Amee 2.5 mg INH -- Duoneb [ 3 mg/0.5 mg (3 ml) UD] 3 ml INH -- Duoneb [ 3 mg/0.5 mg (3 ml) UD] 3 ml INH -- Duoneb [ 3 mg/0.5 mg (3 ml) UD] 3 ml INH -- SOLU-Medrol 125 mg IVP Once -- [employer] -- IV Insertion 1510 Labs reviewed and grossly unremarkable 1520 Patient still reports mild SOB, O2 is 100% on RA. Additional Albuterol INH ordered. CXR ordered. 1555 CXR reviewed, radiology report follows HISTORY: COMPARISON: 07/27/2017 TECHNIQUE: Chest PA and lateral FINDINGS: LINES AND TUBES: None. LUNG AND PLEURA: The lungs are well inflated and clear. No pleural effusion or pneumothorax. HEART AND MEDIASTINUM: The heart is not enlarged. The hilar and mediastinal contours are within normal limits. SKELETAL STRUCTURES: The bony structures are within normal limits for the patient's age. VISUALIZED UPPER ABDOMEN: Normal. OTHER FINDINGS: None. IMPRESSION: No active pulmonary disease. 1744 On re-evaluation, patient reports improvement of symptoms, denies any SOB. On exam, patient remains AAOx3, in no acute distress. Lungs clear to auscultation, cardiac RRR, abdomen soft, non-tender, repeat neuro exam shows no focal findings. No evidence of respiratory distress. Repeat O2: 100% on RA. Patient observed in ED for 4+ hours. VSS stable, stable for discharge. Lab /Diagnostic results d/w the patient in great detail. Diagnosis of SOB, asthma exacerbation d/w the patient. Based on history, exam and diagnostic results, plan will be for outpatient follow up. Patient declined Rx for Albuterol and states she has the inhaler and nebulizer solution at home. Patient instructed to follow-up with pmd / referral provided / the clinic in 1- 2 days without fail. Advised to take medication as prescribed. Return to the emergency room at any time for any new or worsening symptoms. Patient states she fully agrees with and understands discharge instructions. States that she agrees with the plan and disposition. Verbalized and repeated discharge instructions and plan. I have given the patient opportunity to ask any additional questions. Scribe Attestation: Documented by Ayesha Jesus, acting as a scribe for Neelam Betancourt PA-C Provider Scribe Attestation: All medical record entries made by the Scribe were at my direction and personally dictated by me. I have reviewed the chart and agree that the record accurately reflects my personal performance of the history, physical exam, medical decision making, and the department course for this patient. I have also personally directed, reviewed, and agree with the discharge instructions and disposition. Disposition - Clinical Impression Clinical Impression: Asthma exacerbation, Cough, SOB (shortness of breath) - Patient ED Disposition Is Patient to be Admitted: No Counseled Patient/Family Regarding: Studies Performed, Diagnosis, Need For Followup, Rx Given - Disposition Referrals: Hansel Rosales MD [Staff Provider] - Disposition: Routine/Home Disposition Time: 17:57 Condition: IMPROVED Additional Instructions: FOLLOW UP WITH PMD IN 1-2 DAYS WITHOUT FAIL. RETURN TO ED WITH ANY NEW OR WORSENING SYMPTOMS. CONTINUE ALBUTEROL/VENTOLIN USE AT HOME. TAKE PRESCRIBED MEDICATIONS DIRECTED. Prescriptions: predniSONE [predniSONE Tab] 40 mg PO DAILY #10 tab Promethazine/Dextromethorphan [Promethazine-Dm Syrup] 5 ml PO Q6 PRN #200 ml PRN Reason: Cough Instructions: Asthma in Adults, Cough in Adults, Shortness of Breath (Dyspnea) , Medicines for Asthma Forms: [employer] (Belgian) Print Language: L[place]ISH - POA Present On Arrival: None Results - Lab Results Lab Results: 09/15/17 09/15/17 14:27 14:27 WBC 8.9 RBC 4.23 Hgb 13.0 Hct 39.1 MCV 92.4 MCH 30.7 MCHC 33.2 RDW 14.0 Plt Count 253 MPV 9.6 Neut % (Auto) 51.3 Lymph % (Auto) 36.1 Person % (Auto) 7.4 Eos % (Auto) 4.1 H Baso % (Auto) 1.1 Neut # (Auto) 4.5 Lymph # (Auto) 3.2 Person # (Auto) 0.7 Eos # (Auto) 0.4 Baso # (Auto) 0.1 Sodium 142 Potassium 4.5 Chloride 102 Carbon Dioxide 26 Anion Gap 19 BUN 13 Creatinine 0.6 L Est GFR ( Amer) > 60 Est GFR (Non-Af Amer) > 60 Random Glucose 91 Calcium 9.6
--- NOTE | 2017-09-15 15:46 | RAD ---
HISTORY: COMPARISON: 07/27/2017 TECHNIQUE: Chest PA and lateral FINDINGS: LINES AND TUBES: None. LUNG AND PLEURA: The lungs are well inflated and clear. No pleural effusion or pneumothorax. HEART AND MEDIASTINUM: The heart is not enlarged. The hilar and mediastinal contours are within normal limits. SKELETAL STRUCTURES: The bony structures are within normal limits for the patient's age. VISUALIZED UPPER ABDOMEN: Normal. OTHER FINDINGS: None. IMPRESSION: No active pulmonary disease.
[2017-09-15 18:17] VITALS: BP 125/80; PULSE 87; RESP 16
== END 2017-09-15 18:18 | disposition home or self-care (01) ==
LOC: H.ER 13:16
DX: J45.901 Unspecified asthma with (acute) exacerbation (principal); R05 Cough; R06.02 Shortness of breath; I10 Essential (primary) hypertension; Z88.0 Allergy status to penicillin
CPT/HCPCS: 71046; 80048; 85025; 94640; 96374; 99283; J2930